=== PATIENT | male | born 1960 | race Caucasian/White ===

== ENCOUNTER → 2019-09-01 15:44 | Outpatient (BNVA) | payer BC, SELFPAY | PROVIDERS: Family Provider Family Medicine; PCP Family Medicine; Visit Provider Nurse Practitioner Family | DX: B34.9 Viral infection, unspecified (principal); R05 Cough | CPT/HCPCS: 87804 ==

== ENCOUNTER → 2023-12-10 15:23 | Outpatient (BNVA) | payer BC, SELFPAY | PROVIDERS: Family Provider Family Medicine; PCP Nurse Practitioner Family; Visit Provider Nurse Practitioner Family | DX: I10 Essential (primary) hypertension (principal) | CPT/HCPCS: 80053; 80061; 84443; 85025 ==

== ENCOUNTER 2024-07-31 11:18 | Outpatient (CLI) | payer BC, SELFPAY ==
--- NOTE | 2024-07-31 11:22 | XR_ITS ---
WS: [id number] Left shoulder, 3 views, 07/31/2024 Clinical Data: M25.512 - Pain in left shoulder Comparison: None. Findings: No fractures or dislocations are seen. The AC joint is normal. The adjacent left clavicle, left scapu la and ribs are normal. The soft tissues are unremarkable. XR/XR shoulder LT min 2V* [id number] Impression: Negative left shoulder.
== END 2024-07-31 11:19 | disposition home or self-care (01) ==
LOC: RAD 11:20
PROVIDERS: Family Provider Family Medicine; PCP Nurse Practitioner Family; Visit Provider Nurse Practitioner Family
DX: M25.512 Pain in left shoulder (principal); G89.29 Other chronic pain
CPT/HCPCS: 73030

== ENCOUNTER 2025-01-04 08:41 | Outpatient (CLI) | payer BC, SELFPAY ==
--- NOTE | 2025-01-04 08:46 | XR_ITS ---
WS: [id number] XR cervical spine 3V* [id number] REASON FOR EXAM: M24.80 - Other specific joint derangements of unspecified... FINDINGS: Relatively normal lordosis of the cervical spine. No significant vertebral body compression deformity or focal lesion. Moderate narrowing of the disc spaces at C5-C6 and C6-C7. Moderate endplate sclerosis and posterior and anterior osteophytosis at these levels. 2 mm of anterolisthesis of C3 in relation to C4. 2 mm of anterolisthesis of C4 in relation to C5. 2 mm of anterolisthesis of C6 in relation to C5. Normal facet joint alignment. XR/XR cervical spine 3V* [id number] IMPRESSION: Moderate to significant degenerative spondylosis of the cervical spine as above .
== END 2025-01-04 08:42 | disposition home or self-care (01) ==
PROVIDERS: PCP Nurse Practitioner Family; Visit Provider Nurse Practitioner Family
DX: M24.80 Other specific joint derangements of unspecified joint, not elsewhere classified (principal); M50.322 Other cervical disc degeneration at C5-C6 level; M50.323 Other cervical disc degeneration at C6-C7 level; M25.78 Osteophyte, vertebrae; M43.12 Spondylolisthesis, cervical region
CPT/HCPCS: 72040

== ENCOUNTER 2025-01-28 07:32 | Outpatient (CLI) | payer BC, SELFPAY ==
--- NOTE | 2025-01-28 08:00 | MR_ITS ---
WS: [id number] MRI CERVICAL SPINE NONCONTRAST TECHNIQUE: Sagittal T1, T2 and STIR imaging. Axial T2, gradient, and fiesta imaging. CLINICAL INFORMATION: M43.10 - Spondylolisthesis, site unspecified COMPARISON: None. FINDINGS: Straightening of the normal cervical lordosis. Moderate spondylitic changes. Slight retrolisthesis C5 on C6 and C6 on C7 with small disc osteophyte protrusions. Mild central canal stenosis C5-C6 and C6-C7. C2-C3: Moderate facet arthropathy. Mild LEFT bony foraminal narrowing. C3-C4: Moderate facet arthropathy. Mild LEFT bony foraminal narrowing. LEFT facet synovitis. C4-C5: Moderate facet arthropathy. Mild LEFT foraminal narrowing. C5-C6: Slight retrolisthesis. Disc osteophyte protrusion with mild central canal stenosis. Moderate to severe bilateral bony foraminal narrowing with facet arthropathy and uncovertebral joint hypertrophy. C6-C7: Disc osteophyte protrusion with mild central canal stenosis. Moderate to severe bilateral bony foraminal narrowing with facet arthropathy and uncovertebral joint hypertrophy. C7-T1: Mild LEFT bony foraminal narrowing. MR/MR cervical spin wo con* [id number] IMPRESSION: 1. Mild central canal stenosis C5-C6 and C6-C7 due to small disc osteophyte pr otrusions. 2. Cord signal is normal. 3. LEFT facet synovitis C3-C4 with bone marrow edema. This is likely degenerat nataliya or inflammatory. No fluid collections. 4. Moderate to severe bilateral bony foraminal narrowing C5-C6 and C6-C7.
== END 2025-01-28 07:33 | disposition home or self-care (01) ==
LOC: RAD 07:34
PROVIDERS: PCP Nurse Practitioner Family; Visit Provider Nurse Practitioner Family
DX: M43.12 Spondylolisthesis, cervical region (principal); M48.02 Spinal stenosis, cervical region; M25.78 Osteophyte, vertebrae; M47.812 Spondylosis without myelopathy or radiculopathy, cervical region
CPT/HCPCS: 72141